=== PATIENT | male | born 1995 | race Hispanic/Latino ===

== ENCOUNTER 2023-10-15 18:52 | Emergency (ER) | payer SELFPAY ==
[2023-10-15] MEDS ORDERED: Tetracaine 0.5% PF 4 ML BOT ONE (19:11)
[2023-10-15] MEDS ORDERED: Lidocaine/Transparent Dressing 1 EACH KIT ONE (19:11)
[2023-10-15] MEDS ORDERED: Fluorescein Opthalmic Strip ONE (19:15)
[2023-10-15] MEDS ORDERED: Lidocaine 1% (PF) 30 ML VIAL ONE (19:27)
[2023-10-15] MEDS ORDERED: Lidocaine 1% w/Epinephrine 1:200K 30 ML VIAL ONE (19:28)
[2023-10-15] MEDS ORDERED: Triple Antibiotic Oint 1 GM Packet ONE (20:05)
== END 2023-10-15 20:12 | disposition home or self-care (01) ==
LOC: CSHERS 18:52
DX: S01.81XA Laceration without foreign body of other part of head, initial encounter (principal); F17.210 Nicotine dependence, cigarettes, uncomplicated; W22.8XXA Striking against or struck by other objects, initial encounter
CPT/HCPCS: 12013; 99283; J2001